=== PATIENT | male | born 1995 | race Caucasian/White ===

== ENCOUNTER 2022-07-26 16:29 | Emergency (ER) | payer MEDICAID ==
[2022-07-26 17:31] VITALS: O2SAT 98
--- NOTE | 2022-07-26 18:12 | ERPHSYRPT ---
- History of Present Illness Source: patient Exam Limitations: no limitations Patient Subjective Stated Complaint: Pt was working on a hot water heater and thinks that the screwdriver slipped and cut his right hand thumb and the middle knuckle Triage Nursing Assessment: Pt brought to the ER by his , vitals wnl, rates pain as 6/10, 1cm lacertation to the right hand thumb on the knuckle, denies any other injuries, pulses normal, skin n/w/d, no distress Physician History: 26 yo WM w R 1st digit 1cm dorsal R IP joint laceration after cutting it on a hot water heater. Pt is UTD on his tetanus and is R handed. Pain is minimal. Occurred: just prior to arrival Method of Injury: incised Severity of Pain-Max: mild Severity of Pain-Current: mild Extremities Pain Location: thumb: right Modifying Factors: Improves With: nothing Associated Symptoms: none Allergies/Adverse Reactions: No Known Drug Allergies Allergy (Verified 07/26/22 16:47) Home Medications: Dextroamphetamine/Amphetamine [Adderall 10 mg Tablet] 20 mg PO DAILY 07/26/22 [History] Hx Tetanus, Diphtheria Vaccination/Date Given: No (2-3 years ago) Hx Influenza Vaccination/Date Given: No Hx Pneumococcal Vaccination/Date Given: No Travel Risk - International Travel Have you traveled outside of the country in past 3 weeks: No - Coronavirus Screening Close contact with a COVID-19 positive Pt in past 14-21 Days: No - Vaccine Status Have you recieved a Covid-19 vaccination: No - Review of Systems Constitutional: No Symptoms Eyes: No Symptoms Ears, Nose, & Throat: No Symptoms Respiratory: No Symptoms Cardiac: No Symptoms Abdominal/Gastrointestinal: No Symptoms Genitourinary Symptoms: No Symptoms Skin: No Symptoms Neurological: No Symptoms Psychological: No Symptoms Endocrine: No Symptoms Hematologic/Lymphatic: No Symptoms Immunological/Allergic: No Symptoms - Past Medical History Pertinent Past Medical History: No Psycho-Social History: Attention Deficit Disorder - Past Surgical History Past Surgical History: Yes - Social History Smoking Status: Current every day smoker Exposure to second hand smoke: Yes Drug Use: marijuana Patient Lives Alone: No - Nursing Vital Signs Nursing Vital Signs: Initial Vital Signs Temperature 97.5 F 07/26/22 16:36 Pulse Rate 80 07/26/22 16:36 Blood Pressure 115/67 07/26/22 16:36 O2 Sat by Pulse Oximetry 98 07/26/22 16:36 Pain Scale Pain Intensity 6 WNL - Physical Exam General Appearance: no apparent distress Eyes, Ears, Nose, Throat Exam: normal ENT inspection Neck Exam: normal inspection, non-tender, supple, full range of motion, No Brudzinski, No Kernig's, No meningismus Cardiovascular/Respiratory Exam: normal breath sounds, regular rate/rhythm, heart sounds normal Abdominal Exam: non-tender, soft Back Exam: normal inspection, normal range of motion, No CVA tenderness, No vertebral tenderness Shoulder Exam: normal inspection, non-tender, no evidence of injury Elbow/Forearm Exam: normal inspection, non-tender, no evidence of injury Wrist Exam: normal inspection, non-tender, no evidence of injury Hand Exam: laceration (1 cm superficial laceration R dorsal IP joint/good hemostasis/Good distal capillary return and sensation/FROM) Neuro/Tendon Exam: normal sensation, normal motor functions, normal tendon functions, responds to pain, no evidence tendon injury, No motor deficit, No sensory deficit Mental Status Exam: alert, oriented x 3, cooperative Skin Exam: normal color, warm, dry SpO2 Interpretation: normal SpO2: 98 O2 Delivery: Room Air Procedures - Laceration/Wound Repair Right Finger Time of Procedure: 18:12 Wound Location: Right Wound Length (cm): 1 Wound's Depth, Shape: superficial Wound Explored: clean Hibiclens Prep: Yes Wound Repaired With: Dermabond - Course Nursing assessment & vital signs reviewed: Yes - Progress Progress: improved Progress Note: 07/26/22 18:14 Nursing note and vital signs reviewed No food or housing insecurities noted Laceration superficial and pt would prefer Dermabond Tdap UTD Counseled pt/family regarding: diagnosis, need for follow-up Medical Desision Making - Risk of complications Low Risk: Low risk of morbidity from additional dx testing or treatment - Departure Departure Disposition: Home Clinical Impression: Finger laceration Condition: Stable Critical Care Time: No Referrals: DOCTOR,NO FAMILY [Primary Care Provider] - Follow up/PCP as directed Instructions: Laceration Repair With Glue (DC) Additional Instructions: Keep laceration dry for 2-3 days Watch for signs of infection-increasing redness/any pus/increasing pain/temperature greater than 100.5
[2022-07-26 18:24] VITALS: BP 108/66; PULSE 72
== END 2022-07-26 18:24 | disposition home or self-care (01) ==
LOC: ED 16:29
DX: S61.011A Laceration without foreign body of right thumb without damage to nail, initial encounter (principal); W26.8XXA Contact with other sharp object(s), not elsewhere classified, initial encounter; Z79.899 Other long term (current) drug therapy; Z28.310 Unvaccinated for COVID-19; Z72.0 Tobacco use
CPT/HCPCS: 12001; 99281